=== PATIENT | female | born 1965 | race Caucasian/White ===

== ENCOUNTER 2019-10-19 05:05 | Day surgery (SDC) | payer OTHER ==
[2019-10-18 11:24] LABS: HEMATOCRIT 41.2 % (36.0-48.0); HEMOGLOBIN 13.8 g/dL (12-16); MCH 30.9 pg (26.0-34.0); MCHC 33.5 g/dL (31.0-37.0); MCV 92.4 fL (80.0-100.0); MEAN PLATELET VOLUME 9.4 fL (7.4-10.4); RBC 4.46 10x6/uL (4.00-5.40); RDW 12.4 % (11.5-14.5); WBC 5.5 10x3/uL (4.8-10.8)
[~2019-10-19] VITALS: Ht 160 cm; Wt 63.5 kg
--- NOTE | ~2019-10-19 | OP ---
PATIENT NAME: NEIL VARELA MEDICAL RECORD: [id number] :65 LOCATION:D.OPS ADMISSION DATE: SURGEON: MANDY CUELLO DPM DATE OF OPERATION: 10/19/2019 PREOPERATIVE DIAGNOSIS: Neuroma, right third interspace. POSTOPERATIVE DIAGNOSIS: Neuroma, right third interspace. PROCEDURE: Neurectomy, right third interspace. ANESTHESIA: General with local infiltrate utilizing lidocaine and Marcaine plain 10 cc total around the right third interspace as well as intraoperative lidocaine with epinephrine 4 cc. HEMOSTASIS: Right thigh tourniquet at 350 mmHg. PREOPERATIVE DETAILS: The patient was taken to the OR and placed on the operating table in a supine position. This was followed by induction of general anesthesia and infiltration of local anesthetic. The right extremity was then prepped and draped in usual aseptic technique followed by exsanguination and inflation of tourniquet. A 15 blade was used to create a 3 cm linear incision over the dorsal aspect of the right third interspace extending to the sulcus. The incision was deepened down through the subcutaneous tissue being sure to avoid the dorsal vein as well as the dorsal cutaneous nerves. Dissection was carried down through the intermetatarsal ligament, the nerve was quite large and visualized and freed from the branches to the third and fourth toe, which were cut. Dissection was carried proximally as far proximal as possible in the interspace and the nerve was resected and cut there. It was removed and sent to pathology for gross and micro identification. The wound was flushed. Injection of lidocaine with epinephrine was done at this time. The subcutaneous tissue was reapproximated with 4-0 Rapide. Skin was closed with 4-0 Rapide in a subcuticular technique followed by Dermabond. Adaptic, 4 x 4, and Conform were used to dress the wound followed by Coban. Tourniquet was deflated. POSTOPERATIVE DETAILS: The patient tolerated the procedure well and left the OR with vital signs stable and vascular status at preop levels. The patient was transported to recovery per anesthesia in stable condition. TRANSINT:[id number] Voice Confirmation ID: [id number] DOCUMENT ID: [id number] MANDY CUELLO DPM CC: [id number] DICTATION DATE: 10/19/19727 IDENTIFICATION AND RECORDS COMMANDER: 10/19/19 08 [facility] [address] [place] [address]
[2019-10-19 05:43] VITALS: BP 111/64; Ht 160 cm; Wt 63.5 kg
== END 2019-10-19 09:05 | disposition home or self-care (01) ==
LOC: D.OPS 05:05 → D.PAN 07:00 → D.OPS 07:00
PROVIDERS: Anesthesiology; ATTEND Podiatrist
DX: G57.81 Other specified mononeuropathies of right lower limb (principal)